=== PATIENT | male | born 1970 | race Caucasian/White ===

== ENCOUNTER 2016-06-03 16:06 | Emergency (ER) | payer OTHER ==
[2016-06-03 16:54] VITALS: BP 150/111
--- NOTE | 2016-06-03 22:02 | UC ---
Megan Carson SooYoung, scribed for Susan Larry, DO on 06/03/16 at 1729 . Back Pain HPI - HPI Summary HPI Summary: A 46 y/o M presents to [facility] with c/o acute on chronic bilat leg pain in calves and bottom of feet for past four years. Associated sx: bilat pain in forearms onset 3 weeks. Denies numbness, weakness, tingling. Pert PMHx: chronic back pain , herniated discs in neck and lumbar spine. Pt is taking 300mg Gabapentin TID with no relief. Last took IBP last night. He saw a neurosurgeon in [place] last month who won't do surgery until his discs are "full-blown." He is scheduled to have a consultation with a pain specialist on 06/08/16. Aggravating factors: walking, sitting or laying down for prolonged periods. He describes the pain as constant, burning. Alleviating factors: natural remedy, massage, yoga, accupunture. PCP is Dr. Nix in [place]. - History of Current Complaint Chief Complaint: UCBackPain Stated Complaint: NECK/BACK PAIN Hx Obtained From: Patient, Family/Mobile Home Installer - Onset/Duration: Still Present Timing: Constant Severity Initially: Moderate Severity Currently: Moderate Back Pain: Is Diffuse - bilat calves, bottom of feet, forearms Character: Burning Aggravating: Movement, Walking Alleviating: Nothing - see hpi Associated Signs And Symptoms: Negative: Swelling, Redness, Bruising, Fever, Weakness, Numbness, Tingling, Bladder Incontinence, Bowel Incontinence, Weight Loss, Pain with Weight Bearing - Risk Factors Cauda Equina Risk Factors: Negative - Allergies/Home Medications Allergies/Adverse Reactions: Allergies Allergy/AdvReac Type Severity Reaction Status Date / Time Carbamazepine [From Tegretol] Allergy Vomiting Verified 06/03/16 16:37 CI Pigment Blue 63 Allergy Altered Verified 06/03/16 16:37 [From Cymbalta] Mental Status Codeine Allergy Anaphylatic Verified 06/03/16 16:37 Shock Duloxetine [From Cymbalta] Allergy Altered Verified 06/03/16 16:37 Mental Status Tramadol Allergy Vomiting Verified 06/03/16 16:37 PMH/Surg Hx/FS Hx/Imm Hx - Additional Past Medical History Additional PMH: Pos: angina, peripheral vascular dz, back problems Previously Healthy: No Endocrine History Of: Denies: Diabetes, Thyroid Disease, Hyperthyroidism, Hypothyroidism, Dyslipidemia Cardiovascular History Of: Denies: Cardiac Disorders, Hypertension, Pacemaker/ICD, Myocardial Infarction , Congestive Heart Failure, Atrial Fibrillation, Deep Vein Thrombosis, Bleeding Disorders Respiratory History Of: Denies: COPD, Asthma, Bronchitis, Pneumonia, Pulmonary Embolism GI/ History Of: Denies: Gastroesophageal Reflux, Ulcer, Gastrointestinal Bleed, Gall Bladder Disease, Kidney Stones, Diverticulitis, Renal Disease, Urosepsis Neurological History Of: Denies: TIA, CVA, Dementia, Seizures, Migraine Psychological History Of: Denies: Anxiety, Depression, Bipolar Disorder, Schizophrenia, Post Traumatic Stress Disorder Cancer History Of: Denies: Lung Cancer, Colorectal Cancer, Breast Cancer, Prostate Cancer, Cervical Cancer Other History Of: Negative For: HIV, Hepatitis B, Hepatitis C, Anticoagulant Therapy - Surgical History Surgical History: None - Family History Known Family History: Positive: Diabetes, Other - CANCER Negative: Cardiac Disease, Hypertension - Social History Occupation: Employed Part-time Lives: With Family Alcohol Use: Occasionally Substance Use Type: None Substance Use Comment - Amount & Last Used: remote past use Smoking Status (MU): Light Every Day Tobacco Smoker Type: Cigarettes Amount Used/How Often: 1/2 pack daily Have You Smoked in the Last Year: Yes When Did the Patient Quit Smoking/Using Tobacco: 07/30/15 Household Exposure Type: Cigarettes, Cigars Cessation Counseling: Patient Advised to Stop Review of Systems Constitutional: Negative Skin: Negative Eyes: Negative ENT: Negative Respiratory: Negative Cardiovascular: Negative Gastrointestinal: Negative Genitourinary: Negative Motor: Negative Neurovascular: Negative Musculoskeletal: Other: - bilat pain in forearms, bottom of feet Neurological: Paresthesia - bl legs and forearms Psychological: Negative All Other Systems Reviewed And Are Negative: Yes Physical Exam Triage Information Reviewed: Yes Appearance: Well-Appearing, No Pain Distress, Well-Nourished Vital Signs: Initial Vital Signs Temp 98.9 F 06/03/16 16:39 Pulse 79 06/03/16 16:39 Resp 18 06/03/16 16:39 BP 150/111 06/03/16 16:39 Pulse Ox 99 06/03/16 16:39 Eyes: Positive: Conjunctiva Clear ENT: Positive: Hearing grossly normal. Negative: Muffled/hoarse voice Neck exam: Normal Neck: Positive: Supple Respiratory: Positive: Chest non-tender, Lungs clear, Normal breath sounds, No respiratory distress Cardiovascular: Positive: RRR, No Murmur Musculoskeletal: Positive: Other: - PAIN WITH FLEXION AND ROTATION AT THE WAIST ; POSITIVE SPURLING'S ON R ARM, REPRODUCIBLE R FOREARM PAIN; STRENGTH, MOTOR SENSATION INTACT BILATERAL Neurological: Positive: Alert, Muscle Tone Normal Psychological Exam: Normal Psychological: Positive: Age Appropriate Behavior Skin Exam: Normal, Other - warm, dry, nml color Back Pain Course/Dx - Course Course Of Treatment: noted pmh of pvd after pt left. called pt and asked about it. pt stated that he was checked for it but does not think that it was an actual dx. instructed pt to call vascular surg who evaluated [place] in [place] and find out if it is a dx and to have records sent to pcp. - Differential Dx/Diagnosis Differential Diagnosis/HQI/PQRI: Herniated Disc, Strain Provider Diagnoses: lumbar and cervical radiculopthy Discharge - Discharge Plan Condition: Stable Disposition: HOME Prescriptions: HYDROcodone/ACETAMIN 5-325 MG* [[place] 5-325 TAB*] 1 tab PO Q6H PRN #14 tab MDD 4 TABS PRN Reason: Pain Methylprednisolone [Medrol Dosepak 4 MG*] 0 mg PO .SEE JACINTO INSTRUCTION #1 tab Patient Education Materials: Lumbar Radiculopathy (ED), Cervical Radiculopathy (ED) Referrals: Dino Merida MD [Primary Care Provider] - Additional Instructions: CORTICOSTEROID MEDICATION: You have been given a medicine of the cortisone class. This medication is used to control inflammation or allergy. It is usually only given for a short period of time, until the acute process subsides. There are usually no side effects from short-term use of cortisone-like medications. Some persons feel an increased sense of well-being and are not sleepy at bedtime. Long-term use of cortisone medications is best avoided, unless required for a severe condition. If your condition does not remit, or relapses after the course of corticosteroid medication, you should consult your physician. Contact the physician if you develop lightheadedness, black or tarry stools , swelling of the legs, or significant rapid change in weight. YOU WOULD LIKELY BENEFIT FROM OSTEOPATHIC MANIPULATION. WE RECOMMEND THAT YOU FIND AN OSTEOPATHIC PHYSICIAN IN YOUR AREA WHO DOES LYMPHATIC, MYOFACIAL AND VISCERAL WORK The documentation as recorded by the Megan palmer SooYoung accurately reflects the service I personally performed and the decisions made by me, Susan Larry DO.
== END 2016-06-03 18:53 | disposition home or self-care (01) ==
LOC: UCEAST 16:06
DX: M54.16 Radiculopathy, lumbar region (principal); M54.12 Radiculopathy, cervical region; Z88.6 Allergy status to analgesic agent; Z88.8 Allergy status to other drugs, medicaments and biological substances; F17.210 Nicotine dependence, cigarettes, uncomplicated
CPT/HCPCS: 99212; G0463

== ENCOUNTER 2016-06-16 08:44 | Emergency (ER) | payer OTHER ==
[2016-06-16 08:56] VITALS: BP 156/96
--- NOTE | 2016-06-16 09:36 | UC ---
Back Pain HPI - HPI Summary HPI Summary: PT WITH CHRONIC BACK AND NECK PAIN BEING SEEN BY DR. BENDER WITH PAIN MGMT. IS SET UP FOR A LESI IN 2 WEEKS. CURRENTLY REPORTS TAKING 800MG GABAPENTIN TID. STATES HE HAD A PT SESSION YESTERDAY AND THEN LAST NIGHT HAD WORSENING OF PAIN. STATES HE CALLED DR. BENDER'S OFFICE AND WAS TOLD SHE COULD NOT SEE HIM PENDING INSURANCE APPROVAL OF HIS LESI. - History of Current Complaint Chief Complaint: UCBackPain Stated Complaint: NECK AND BACK PAIN Time Seen by Provider: 06/16/16 09:08 Hx Obtained From: Patient Onset/Duration: Sudden Onset, Lasting Hours, Still Present Timing: Constant Severity Initially: Moderate Severity Currently: Moderate Pain Intensity: 8 Pain Scale Used: 0-10 Numeric Back Pain: Is Diffuse Character: Sharp Aggravating: Movement Alleviating: Nothing Associated Signs And Symptoms: Positive: Negative - Allergies/Home Medications Allergies/Adverse Reactions: Allergies Allergy/AdvReac Type Severity Reaction Status Date / Time Carbamazepine [From Tegretol] Allergy Vomiting Verified 06/03/16 16:37 CI Pigment Blue 63 Allergy Altered Verified 06/03/16 16:37 [From Cymbalta] Mental Status Codeine Allergy Anaphylatic Verified 06/03/16 16:37 Shock Duloxetine [From Cymbalta] Allergy Altered Verified 06/03/16 16:37 Mental Status Tramadol Allergy Vomiting Verified 06/03/16 16:37 Home Medications: Home Medications Gabapentin TAB(NF) [Neurontin 600 mg TAB(NF)] 800 mg PO TID 06/16/16 [History] PMH/Surg Hx/FS Hx/Imm Hx Endocrine History Of: Denies: Diabetes, Thyroid Disease, Hyperthyroidism, Hypothyroidism, Dyslipidemia Cardiovascular History Of: Reports: Cardiac Disorders - abnormal EKG, Hypertension - in past not taking meds at present Denies: Pacemaker/ICD, Myocardial Infarction, Congestive Heart Failure, Atrial Fibrillation, Deep Vein Thrombosis, Bleeding Disorders Respiratory History Of: Reports: Asthma - as a child Denies: COPD, Bronchitis, Pneumonia, Pulmonary Embolism GI/ History Of: Denies: Gastroesophageal Reflux, Ulcer, Gastrointestinal Bleed, Gall Bladder Disease, Kidney Stones, Diverticulitis, Renal Disease, Urosepsis Neurological History Of: Denies: TIA, CVA, Dementia, Seizures, Migraine Psychological History Of: Denies: Anxiety, Depression, Bipolar Disorder, Schizophrenia, Post Traumatic Stress Disorder Cancer History Of: Denies: Lung Cancer, Colorectal Cancer, Breast Cancer, Prostate Cancer, Cervical Cancer Other History Of: Negative For: HIV, Hepatitis B, Hepatitis C, Anticoagulant Therapy - Surgical History Surgical History: Yes Surgery Procedure, Year, and Place: teeth - Family History Known Family History: Positive: Diabetes, Other - CANCER Negative: Cardiac Disease, Hypertension - Social History Alcohol Use: Occasionally Substance Use Type: None Substance Use Comment - Amount & Last Used: remote past use Smoking Status (MU): Light Every Day Tobacco Smoker Type: Cigarettes Amount Used/How Often: 1 cigar off and on Have You Smoked in the Last Year: Yes When Did the Patient Quit Smoking/Using Tobacco: 07/30/15 Household Exposure Type: Cigars Review of Systems Constitutional: Negative Skin: Negative Respiratory: Negative Cardiovascular: Negative Gastrointestinal: Negative Musculoskeletal: Decreased ROM, Myalgia All Other Systems Reviewed And Are Negative: Yes Physical Exam Triage Information Reviewed: Yes Appearance: Well-Appearing, No Pain Distress, Well-Nourished Vital Signs: Initial Vital Signs Temp 99.7 F 06/16/16 08:48 Pulse 88 06/16/16 08:48 Resp 18 06/16/16 08:48 BP 156/96 06/16/16 08:48 Pulse Ox 100 06/16/16 08:48 Vital Signs Reviewed: Yes Eyes: Positive: Conjunctiva Clear ENT: Positive: Hearing grossly normal Neck: Positive: Supple Respiratory: Positive: No respiratory distress, No accessory muscle use Cardiovascular: Positive: Pulses Normal Abdomen Description: Positive: Soft Musculoskeletal: Positive: No Edema, ROM Limited @ - BACK Neurological: Positive: Alert Psychological: Positive: Age Appropriate Behavior Skin: Negative: rashes Back Pain Course/Dx - Differential Dx/Diagnosis Provider Diagnoses: CHRONIC BACK PAIN - Physician Notifications Discussed Patient Care With: DR. RICHIE BENDER Time Discussed With Above Provider: 09:30 - ADVISED TO HAVE PT CALL HER OFFICE TO DISCUSS TITRATION OF GABAPENTIN Discharge - Discharge Plan Condition: Stable Disposition: HOME Patient Education Materials: Chronic Back Pain (ED) Referrals: Dino Merida MD [Primary Care Provider] - If Needed Richie Bender MD [Medical Doctor] - As Soon As Possible Additional Instructions: I SPOKE WITH DR. BENDER TODAY. SHE ADVISED THAT YOU CALL HER OFFICE TO DISCUSS FURTHER TITRATION OF YOUR GABAPENTIN DOSE.
== END 2016-06-16 09:46 | disposition home or self-care (01) ==
LOC: UCEAST 08:44
DX: M54.9 Dorsalgia, unspecified (principal); M54.2 Cervicalgia; Z88.5 Allergy status to narcotic agent; Z88.8 Allergy status to other drugs, medicaments and biological substances; F17.210 Nicotine dependence, cigarettes, uncomplicated
CPT/HCPCS: 99211; G0463

== ENCOUNTER 2016-06-26 12:42 | Emergency (ER) | payer OTHER ==
[2016-06-26 12:50] VITALS: BP 188/97
[2016-06-26] MEDS ORDERED: HYDROcodone/ACETAMIN 5-325 MG* 1 TAB PO ONE (14:25)
[2016-06-26] MEDS ORDERED: predniSONE TAB* 20 MG PO ONE (14:25)
--- NOTE | 2016-06-26 15:34 | ED ---
Back Pain - History of Current Complaint Chief Complaint: EDBackInjuryPain Stated Complaint: FALL /HIP-BACK PAIN Time Seen by Provider: 06/26/16 13:58 Hx Obtained From: Patient Onset/Duration: Sudden Onset - slipped going down stairs last evening, fell on L knee and hip but now has low back. was amb immed after fall. Onset/Duration: Started Hours Ago Timing: Constant Back Pain Location: Is Discrete @ - bilat low back Severity Initially: Moderate Severity Currently: Moderate Pain Intensity: 7 Character: Throbbing, Spasmodic, Stiffness Aggravating Symptom(s): Movement Alleviating Symptom(s): Rest, Position Associated Signs And Symptoms: Negative: Weakness, Numbness, Tingling, Bladder Incontinence, Bowel Incontinence Related History: Similar Episode Dx As - "slipped discs" - Risk Factors Cauda Equina Risk Factors: Negative - Allergies/Home Medications Allergies/Adverse Reactions: Allergies Allergy/AdvReac Type Severity Reaction Status Date / Time Codeine Allergy Anaphylatic Verified 06/26/16 12:46 Shock Carbamazepine [From Tegretol] AdvReac Vomiting Verified 06/26/16 12:46 CI Pigment Blue 63 AdvReac Altered Verified 06/26/16 12:46 [From Cymbalta] Mental Status Duloxetine [From Cymbalta] AdvReac Altered Verified 06/26/16 12:46 Mental Status Tramadol AdvReac Vomiting Verified 06/26/16 12:46 PMH/Surg Hx/FS Hx/Imm Hx Previously Healthy: Yes Endocrine/Hematology History: Denies: Hx Anticoagulant Therapy, Hx Diabetes, Hx Thyroid Disease Cardiovascular History: Reports: Hx Angina, Hx Hypertension - in past not taking meds at present, Hx Peripheral Vascular Disease Denies: Hx Congestive Heart Failure, Hx Coronary Artery Disease, Hx Deep Vein Thrombosis, Hx Hypercholesterolemia, Hx Myocardial Infarction, Hx Pacemaker /ICD, Hx Valvular Heart Disease Respiratory History: Reports: Hx Asthma - as a child Denies: Hx Chronic Obstructive Pulmonary Disease (COPD), Hx Lung Cancer, Hx Pneumonia, Hx Pulmonary Embolism GI History: Denies: Hx Gall Bladder Disease, Hx Gastrointestinal Bleed, Hx Ulcer, Hx Urosepsis History: Denies: Hx Kidney Stones, Hx Renal Disease Musculoskeletal History: Reports: Hx Back Problems Sensory History: Reports: Hx Contacts or Glasses Denies: Hx Hearing Aid Opthamlomology History: Reports: Hx Contacts or Glasses Neurological History: Denies: Hx Dementia, Hx Migraine, Hx Seizures, Hx Transient Ischemic Attacks (TIA) Comment Only: Other Neuro Impairments/Disorders - PAIN CLINIC PATIENT Psychiatric History: Denies: Hx Anxiety, Hx Depression, Hx Panic Disorder, Hx Schizophrenia, Hx Bipolar Disorder - Surgical History Surgery Procedure, Year, and Place: teeth - Immunization History Date of Tetanus Vaccine: 3 years ago Date of Influenza Vaccine: none Infectious Disease History: No Infectious Disease History: Denies: Hx Clostridium Difficile, Hx Hepatitis, Hx Human Immunodeficiency Virus (HIV), History Other Infectious Disease, Traveled Outside the [place] in Last 30 Days - Family History Known Family History: Positive: Diabetes, Other - CANCER Negative: Cardiac Disease, Hypertension - Social History Occupation: Unemployed Lives: With Family Alcohol Use: Rare Hx Substance Use: Yes Substance Use Type: Reports: None Substance Use Comment - Amount & Last Used: remote past use Hx Tobacco Use: Yes Smoking Status (MU): Current Some Day Smoker Type: Cigars Amount Used/How Often: 1 cigar off and on Have You Smoked in the Last Year: Yes Review of Systems Constitutional: Negative Negative: Fever, Chills Cardiovascular: Negative Respiratory: Negative Gastrointestinal: Negative Musculoskeletal: Other - low back pain Skin: Negative Negative: Rash Neurological: Negative Negative: Headache, Weakness, Paresthesia Psychological: Normal All Other Systems Reviewed And Are Negative: Yes Physical Exam Triage Information Reviewed: Yes Vital Signs On Initial Exam: Initial Vitals Temp Pulse Resp BP Pulse Ox 99.3 F 94 20 188/97 100 06/26/16 12:46 06/26/16 12:46 06/26/16 12:46 06/26/16 12:46 06/26/16 12:46 Vital Signs Reviewed: Yes Appearance: Positive: Well-Appearing, Well-Nourished, Pain Distress - appears nervous and moves quickly to sit up and explain pain Skin: Positive: Warm, Skin Color Reflects Adequate Perfusion, Dry Neck: Positive: Supple, Other: - no evidence swelling, deformity, good ROM Respiratory/Lung Sounds: Positive: Clear to Auscultation Cardiovascular: Positive: Normal, RRR, Pulses are Symmetrical in both Upper and Lower Extremities Musculoskeletal: Positive: Limited @ - lumbar spine on full flexion Neurological: Positive: Normal, Sensory/Motor Intact, Alert, Oriented to Person Place, Time Psychiatric: Positive: Normal Diagnostics - Vital Signs Vital Signs Temp Pulse Resp BP Pulse Ox 06/26/16 12:46 99.3 F 94 20 188/97 100 - Laboratory Lab Statement: Any lab studies that have been ordered have been reviewed, and results considered in the medical decision making process. Re-Evaluation - Re-Evaluation First Eval Re-Evaluation Time: 15:00 - pt standing at bedside bending over towards floor when approached for recheck. states pain much better Change: Improved Back Pain Course/Dx - Diagnoses Differential Diagnosis/HQI/PQRI: Positive: Cauda Equina Syndrome, Fracture, Herniated Disc, Strain, Sprain Provider Diagnoses: Low back strain Discharge - Discharge Plan Condition: Improved Disposition: HOME Patient Education Materials: Low Back Strain (ED) Referrals: Dino Merida MD [Primary Care Provider] - 2 Days (if no better) Additional Instructions: use warm packs to back ibuprofen 600mg every 6 hours as needed for pain (take with food) avoid heavy lifting Addendum entered and electronically signed by Cheryl Harris NP 06/26/16 15: 45: ED Addendum Addendum: [employer] reference # [id number]
== END 2016-06-26 15:49 | disposition home or self-care (01) ==
LOC: ED 12:42
DX: S39.012A Strain of muscle, fascia and tendon of lower back, initial encounter (principal); M54.9 Dorsalgia, unspecified; Z72.0 Tobacco use; M54.5 Low back pain; W19.XXXA Unspecified fall, initial encounter; Y93.9 Activity, unspecified; Y92.9 Unspecified place or not applicable; Y99.9 Unspecified external cause status
CPT/HCPCS: 99282; J7512

== ENCOUNTER 2016-08-21 09:11 | Emergency (ER) | payer OTHER ==
[2016-08-21 09:24] VITALS: BP 157/90
--- NOTE | 2016-08-21 15:37 | UC ---
Shaylee Carson Rebecca, scribed for Chioma Looney MD on 08/21/16 at 0932 . Neck Pain HPI - HPI Summary HPI Summary: Pt is a 46 y/o M who presents to [facility] c/o acute on chronic neck pain secondary to pinched nerves, present for 4 years, worsening gradually this morning. Pain is in the neck with bilateral radiation to the hands and forearms. Pain characterized as pressure, throbbing and burning and currently severe, ranked 9/10. Sx aggravated and alleviated by nothing. Denies any other symptoms. Pain is being managed with treatments of epidurals. Denies any Hx of drug addiction/abuse. Dr. Merida is PCP, has an appointment in 2 days. Has an appointment with [facility] on the 7th of next month (2 weeks). - History of Current Complaint Chief Complaint: UCGeneralIllness Stated Complaint: BACK PAIN Time Seen by Provider: 08/21/16 09:27 Hx Obtained From: Patient Onset/Duration Of Injury/Symptoms: Days - Worsened today Onset/Duration: Gradual Onset - acute on chronic Severity: Severe Pain Intensity: 9 Pain Scale Used: 0-10 Numeric Location: Discrete At: - neck, Radiates To: - Bilateral hands and forearms Character: Burning, Throbbing Aggravating Factors: Nothing Alleviating Factors: Nothing Associated Signs & Symptoms: Positive: Negative Related History: Similar Episode/Dx As: - 4 years of chronic pain - Allergies/Home Medications Allergies/Adverse Reactions: Allergies Allergy/AdvReac Type Severity Reaction Status Date / Time Codeine Allergy Anaphylatic Verified 08/20/16 10:10 Shock Carbamazepine [From Tegretol] AdvReac Vomiting Verified 08/20/16 10:10 CI Pigment Blue 63 AdvReac Altered Verified 08/20/16 10:10 [From Cymbalta] Mental Status Duloxetine [From Cymbalta] AdvReac Altered Verified 08/20/16 10:10 Mental Status Tramadol AdvReac Vomiting Verified 08/20/16 10:10 PMH/Surg Hx/FS Hx/Imm Hx Endocrine History Of: Denies: Diabetes, Thyroid Disease, Hyperthyroidism, Hypothyroidism, Dyslipidemia Cardiovascular History Of: Reports: Cardiac Disorders - abnormal EKG, Hypertension Denies: Pacemaker/ICD, Myocardial Infarction, Congestive Heart Failure, Atrial Fibrillation, Deep Vein Thrombosis, Bleeding Disorders Respiratory History Of: Reports: Asthma - as a child Denies: COPD, Bronchitis, Pneumonia, Pulmonary Embolism GI/ History Of: Denies: Gastroesophageal Reflux, Ulcer, Gastrointestinal Bleed, Gall Bladder Disease, Kidney Stones, Diverticulitis, Renal Disease, Urosepsis Neurological History Of: Denies: TIA, CVA, Dementia, Seizures, Migraine Psychological History Of: Denies: Anxiety, Depression, Bipolar Disorder, Schizophrenia, Post Traumatic Stress Disorder Cancer History Of: Denies: Lung Cancer, Colorectal Cancer, Breast Cancer, Prostate Cancer, Cervical Cancer Other History Of: Negative For: HIV, Hepatitis B, Hepatitis C, Anticoagulant Therapy - Surgical History Surgical History: Yes Surgery Procedure, Year, and Place: teeth - Family History Known Family History: Positive: Diabetes, Other - CANCER Negative: Cardiac Disease, Hypertension - Social History Alcohol Use: Occasionally Substance Use Type: None Substance Use Comment - Amount & Last Used: remote past use Smoking Status (MU): Former Smoker Type: Cigars Amount Used/How Often: 1 cigar off and on Have You Smoked in the Last Year: Yes When Did the Patient Quit Smoking/Using Tobacco: 07/30/15 Household Exposure Type: Cigars Review Of Systems Constitutional: Positive: Negative Skin: Positive: Negative Eyes: Positive: Negative ENT: Positive: Negative Respiratory: Positive: Negative Cardiovascular: Positive: Negative Gastrointestinal: Positive: Negative Genitourinary: Positive: Negative Musculoskeletal: Positive: Arthralgia - See HPI Neurological: Positive: Negative Psychological: Positive: Negative All Other Systems Reviewed And Are Negative: Yes Physical Exam Triage Information Reviewed: Yes Appearance: Well-Nourished Vital Signs: Initial Vital Signs Temp 99.1 F 08/21/16 09:18 Pulse 103 08/21/16 09:18 Resp 18 08/21/16 09:18 BP 157/90 08/21/16 09:18 Pulse Ox 99 08/21/16 09:18 Vital Signs Reviewed: Yes Eye Exam: Normal ENT Exam: Normal Neck exam: Other - tender generalized carlos alberto lower cervical area, carlos alberto C 4- T1. Mild spasm / straightening appreciated. No single point tenderness, but clearly uncomfortable. Respiratory Exam: Normal Respiratory: Positive: Chest non-tender, Lungs clear, Normal breath sounds, No respiratory distress, No accessory muscle use, Other: - NO dyspnea, no tachypnea , normal respiratory rate Cardiovascular Exam: Normal Cardiovascular: Positive: RRR, No Murmur, Pulses Normal, Brisk Capillary Refill , Other: - Good general skin color Abdominal Exam: Normal Abdomen Description: Positive: Nontender, No Organomegaly, Soft Bowel Sounds: Positive: Present Musculoskeletal Exam: Normal Musculoskeletal: Positive: Strength Intact - Gait slow, steady. Moves hands ok. Does report occasional paresthesia and dysesthesia to bilat mid palms and to dorsal forearms. Neurological Exam: Normal - Nonfocal, grossly intact Psychological Exam: Normal - Conversing easily and appropriately Skin Exam: Normal Skin: Negative: rashes Neck Pain Course/Dx - Course Course Of Treatment: No new problems in CCC. He has an appointmen on Tuesday with PCP, where he intends to review tx plan / medications. DNage number: [phone]. Answered questions as posed. Offered Toradol shot, pt declined. Reviewed MRI from 08/16/16 (in [facility]) - Differential Dx/Diagnosis Provider Diagnoses: Acute exacerbation of chronic neck pain. Abnormal cervical MRI Discharge - Discharge Plan Condition: Stable Disposition: HOME Prescriptions: HYDROcodone/ACETAMIN 5-325 MG* [[place] 5-325 TAB*] 1 tab PO Q6H PRN #14 tab MDD 4 PRN Reason: Pain Patient Education Materials: Cervical Spinal Stenosis (ED), Chronic Neck Pain ( GEN) Referrals: Dino Merida MD [Primary Care Provider] - Additional Instructions: Please follow up with your primary care provider as scheduled on Tuesday. Seek medical attention for worsening problems in the meantime. The documentation as recorded by the Shaylee palmer Rebecca accurately reflects the service I personally performed and the decisions made by me, Chioma Looney MD.
== END 2016-08-21 10:12 | disposition home or self-care (01) ==
LOC: UCEAST 09:11
DX: M54.2 Cervicalgia (principal); G89.29 Other chronic pain; R93.8 Abnormal findings on diagnostic imaging of other specified body structures; Z88.5 Allergy status to narcotic agent; Z87.891 Personal history of nicotine dependence
CPT/HCPCS: 99212; G0463

== ENCOUNTER 2016-08-25 12:57 | Emergency (ER) | payer OTHER ==
[2016-08-25] MEDS ORDERED: Albuterol 2.5 MG/3 ML NEB.SOL* (0.083%) INH ONE (13:16)
[2016-08-25] MEDS ORDERED: Ipratropium 0.5MG/2.5ML NEB* 0.5 MG/2.5 ML NEB.SOLN INH ONE (13:17)
--- NOTE | 2016-08-25 13:19 | UC ---
Respiratory Complaint HPI - HPI Summary HPI Summary: The patient comes in today for: 1. Lung congestion: Onset: yesterday. Palliative/provocative: New wood burning. Going outside from the house helps. Quality: Dry cough Region: [place]. Severity: Lower back pain worse with coughing. Time: Cough comes and goes. Associated symptoms: Wheezing: Present. Event: His brother was burning a different wood and the patient states that his breathing was worse. Fevers: None. Hemoptysis: None. * - History of Current Complaint Stated Complaint: CONGESTION Time Seen by Provider: 08/25/16 13:10 Hx Obtained From: Patient, Family/Document Specialist - Allergies/Home Medications Allergies/Adverse Reactions: Allergies Allergy/AdvReac Type Severity Reaction Status Date / Time Codeine Allergy Anaphylatic Verified 08/25/16 13:26 Shock Carbamazepine [From Tegretol] AdvReac Vomiting Verified 08/25/16 13:26 CI Pigment Blue 63 AdvReac Altered Verified 08/25/16 13:26 [From Cymbalta] Mental Status Duloxetine [From Cymbalta] AdvReac Altered Verified 08/25/16 13:26 Mental Status Tramadol AdvReac Vomiting Verified 08/25/16 13:26 Home Medications: Home Medications Bp Med 1 tab PO DAILY 08/25/16 [History Confirmed 08/25/16] PMH/Surg Hx/FS Hx/Imm Hx Previously Healthy: No - Chronic neck/lower back pain Endocrine History Of: Denies: Diabetes - Chr, Thyroid Disease, Hyperthyroidism, Hypothyroidism, Dyslipidemia Cardiovascular History Of: Reports: Cardiac Disorders - Palpitations and a "weird" EKG., Hypertension Denies: Pacemaker/ICD, Myocardial Infarction, Congestive Heart Failure, Atrial Fibrillation, Deep Vein Thrombosis, Bleeding Disorders Respiratory History Of: Reports: Asthma - as a child Denies: COPD, Bronchitis, Pneumonia, Pulmonary Embolism GI/ History Of: Denies: Gastroesophageal Reflux, Ulcer, Gastrointestinal Bleed, Gall Bladder Disease, Kidney Stones, Diverticulitis, Renal Disease, Urosepsis Neurological History Of: Denies: TIA, CVA, Dementia, Seizures, Migraine Psychological History Of: Denies: Anxiety, Depression, Bipolar Disorder, Schizophrenia, Post Traumatic Stress Disorder Cancer History Of: Denies: Lung Cancer, Colorectal Cancer, Breast Cancer, Prostate Cancer, Cervical Cancer Other History Of: Negative For: HIV, Hepatitis B, Hepatitis C, Anticoagulant Therapy - Surgical History Surgical History: Yes Surgery Procedure, Year, and Place: teeth - Family History Known Family History: Positive: Diabetes, Other - CANCER Negative: Cardiac Disease, Hypertension - Social History Occupation: Unemployed Alcohol Use: Occasionally Substance Use Type: None Substance Use Comment - Amount & Last Used: remote past use Smoking Status (MU): Former Smoker Type: Cigars Amount Used/How Often: 1 cigar off and on Have You Smoked in the Last Year: Yes When Did the Patient Quit Smoking/Using Tobacco: 07/30/15 Household Exposure Type: Cigars Review of Systems Constitutional: Negative Skin: Negative Eyes: Negative ENT: Negative Respiratory: Shortness Of Breath, Cough Cardiovascular: Negative Gastrointestinal: Negative Genitourinary: Negative All Other Systems Reviewed And Are Negative: Yes Physical Exam Triage Information Reviewed: Yes Appearance: Well-Appearing, Thin, Other: - Patient appears nervous--and short of breath. Which is the cause/effect is not clear. Vital Signs Reviewed: Yes Eyes: Positive: Conjunctiva Clear. Negative: Discharge ENT: Positive: Hearing grossly normal. Negative: Pharyngeal erythema, Nasal congestion, Nasal drainage, TM bulging, TM dull, TM red, Tonsillar swelling, Tonsillar exudate Dental: Negative: Gross Decay/Caries @, Dental Fracture @ Neck: Positive: Supple, Nontender, No Lymphadenopathy. Negative: Nuchal Rigidity Respiratory: Positive: Lungs clear - Initially, there was no marked wheezing, but the inspiration/expiration cycle seems shortened--better after the albuterol /ipratropium treatment by 45% by his report., No respiratory distress - NO intercostal retractions. But when he talks he appears short of breath., No accessory muscle use. Negative: Crackles, Wheezing Cardiovascular: Positive: RRR, No Murmur Abdomen Description: Positive: Nontender, No Organomegaly, Soft. Negative: Distended, Guarding Musculoskeletal: Positive: Strength Intact, ROM Intact, No Edema Neurological: Positive: Alert, Muscle Tone Normal Psychological: Positive: Age Appropriate Behavior, Consolable Skin: Negative: rashes, breakdown UC Diagnostic Evaluation - Radiology Xray Interpretation: No Acute Changes - The patient's preliminary report by radiology on venous Doppler and CXR were negative. Radiology Interpretation Completed By: Radiologist Respiratory Course/Dx - Course Course Of Treatment: Depsite the patient's pressured speech, and short sentences and complaint of shortness of breath, he states that he continues to do well post DuoNeb treatment. His treatment options were discussed. At this time, he just wants to go with albuterol treatment. - Differential Dx/Diagnosis Differential Diagnosis/HQI/PQRI: Asthma, Bronchitis, Sinusitis Provider Diagnoses: Dyspnea secondary to. Asthma exacerbation. Discharge - Discharge Plan Condition: Stable Disposition: HOME Patient Education Materials: Asthma (ED), Reactive Airways Disease (ED) Referrals: Dino Merida MD [Primary Care Provider] - 1 Week (Please see your primary care provider in about one to two weeks to see how well you are doing. If you get worse, please be seen sooner.)
[2016-08-25 13:26] VITALS: BP 119/96
--- NOTE | 2016-08-25 14:34 | RAD ---
INDICATION: Chronic bilateral leg pain. COMPARISON: None TECHNIQUE: Duplex interrogation of the both lower extremities was performed. FINDINGS: Deep veins: The common femoral, great saphenous, profunda femoris, proximal, mid, and distal deep femoral, popliteal, posterior tibial, and peroneal veins are patent. There is normal compressibility, augmentation, and phasic flow. Superficial veins: There are no findings of superficial thrombophlebitis. Popliteal fossa:There is no evidence of a popliteal cyst. Soft tissues:There are no soft tissue abnormalities. IMPRESSION: NORMAL BILATERAL EXAMINATION. NO EVIDENCE OF DEEP VENOUS THROMBOSIS
--- NOTE | 2016-08-25 14:57 | RAD ---
INDICATION: Short of breath COMPARISON: Chest x-ray November 17, 2015 TECHNIQUE: PA and lateral dual-energy views were obtained. FINDINGS: Bones/Soft Tissues: There are no acute bony findings. Cardiomediastinal: The cardiomediastinal silhouette is normal. Lungs: There are no infiltrates. There is mild hyperinflation Pleura: There are no pleural effusions. Other: None IMPRESSION: MILD HYPERINFLATION, OTHERWISE NEGATIVE
== END 2016-08-25 15:11 | disposition home or self-care (01) ==
LOC: UCCORT 12:57
DX: J45.901 Unspecified asthma with (acute) exacerbation (principal); M79.604 Pain in right leg; M79.605 Pain in left leg; I10 Essential (primary) hypertension; Z87.891 Personal history of nicotine dependence
CPT/HCPCS: 71020; 93970; 99202; G0463; J7644

== ENCOUNTER 2016-10-26 12:26 | Emergency (ER) | payer OTHER ==
[2016-10-26 12:58] VITALS: BP 129/84
[2016-10-26] MEDS ORDERED: Ketorolac INJ* 30 MG/ML 1 ML VIAL IM ONE (13:29)
[2016-10-26] MEDS ORDERED: HYDROcodone/ACETAMIN 5-325 MG* 1 TAB PO ONE (13:30)
--- NOTE | 2016-10-26 13:38 | UC ---
Megan Carson SooYoung, scribed for Justyna Resendiz MD on 10/26/16 at 1247 . Back Pain HPI - HPI Summary HPI Summary: A 46 y/o M [place] [facility] [place]o acute on chronic severe back pain and pinched nerve in his neck. The pain is radiating down the back of his legs which he states is new. Associated sx: vomiting. Pt was seen at [facility] yesterday for a MHE due to SI because of the "things he was saying" because he was in so much pain; pt states they did not give him pain medication while there. Pt is here with and [id number]. He reports that he took Gabapentin this AM and yesterday to no relief, he took Tylenol PM last night. Pt has been previously seen [facility] [place]. Pt also has a Rx for medical marijuana, but will be unable to make his appt that is scheduled for 10/29/2016 due to financial reasons. PCP is Dr. Merida. PMHx: HTN. Former smoker, quit 5-6 months ago. Patients medication reviewed this visit. - History of Current Complaint Stated Complaint: BACK PAIN Time Seen by Provider: 10/26/16 12:45 Hx Obtained From: Patient Onset/Duration: Still Present Timing: Constant Severity Initially: Severe Severity Currently: Severe Pain Intensity: 10 Pain Scale Used: 0-10 Numeric Back Pain: Is Discrete @ - back and neck Character: Aching, Spasmodic Aggravating: Movement Alleviating: Nothing Associated Signs And Symptoms: Positive: Other - pos: vomiting - Allergies/Home Medications Allergies/Adverse Reactions: Allergies Allergy/AdvReac Type Severity Reaction Status Date / Time Codeine Allergy Anaphylatic Verified 10/26/16 12:47 Shock Carbamazepine [From Tegretol] AdvReac Vomiting Verified 10/26/16 12:47 CI Pigment Blue 63 AdvReac Altered Verified 10/26/16 12:47 [From Cymbalta] Mental Status Duloxetine [From Cymbalta] AdvReac Altered Verified 10/26/16 12:47 Mental Status Tramadol AdvReac Vomiting Verified 10/26/16 12:47 Home Medications: Home Medications Levetiracetam [Keppra 500] 500 mg PO 10/26/16 [History] PMH/Surg Hx/FS Hx/Imm Hx Previously Healthy: No Endocrine History Of: Denies: Diabetes - Chr, Thyroid Disease, Hyperthyroidism, Hypothyroidism, Dyslipidemia Cardiovascular History Of: Reports: Cardiac Disorders - Palpitations and a "weird" EKG., Hypertension Denies: Pacemaker/ICD, Myocardial Infarction, Congestive Heart Failure, Atrial Fibrillation, Deep Vein Thrombosis, Bleeding Disorders Respiratory History Of: Reports: Asthma - as a child Denies: COPD, Bronchitis, Pneumonia, Pulmonary Embolism GI/ History Of: Denies: Gastroesophageal Reflux, Ulcer, Gastrointestinal Bleed, Gall Bladder Disease, Kidney Stones, Diverticulitis, Renal Disease, Urosepsis Neurological History Of: Denies: TIA, CVA, Dementia, Seizures, Migraine Psychological History Of: Denies: Anxiety, Depression, Bipolar Disorder, Schizophrenia, Post Traumatic Stress Disorder Cancer History Of: Denies: Lung Cancer, Colorectal Cancer, Breast Cancer, Prostate Cancer, Cervical Cancer Other History Of: Negative For: HIV, Hepatitis B, Hepatitis C, Anticoagulant Therapy - Surgical History Surgical History: Yes Surgery Procedure, Year, and Place: teeth - Family History Known Family History: Positive: Diabetes, Other - CANCER Negative: Cardiac Disease, Hypertension - Social History Occupation: Unemployed Lives: With Family Alcohol Use: Occasionally Substance Use Type: None Substance Use Comment - Amount & Last Used: remote past use Smoking Status (MU): Former Smoker Type: Cigars Amount Used/How Often: 1 cigar off and on Have You Smoked in the Last Year: Yes When Did the Patient Quit Smoking/Using Tobacco: 07/30/15 Household Exposure Type: Cigars Review of Systems Constitutional: Negative Skin: Negative Eyes: Negative ENT: Negative Respiratory: Negative Cardiovascular: Negative Gastrointestinal: Vomiting Genitourinary: Negative Motor: Negative Neurovascular: Negative Musculoskeletal: Other: - pos: back and neck pain Neurological: Negative Psychological: Negative All Other Systems Reviewed And Are Negative: Yes Physical Exam Vital Signs: Initial Vital Signs Temp 98.4 F 10/26/16 12:40 Pulse 84 10/26/16 12:40 Resp 20 10/26/16 12:40 BP 129/84 10/26/16 12:40 Pulse Ox 100 10/26/16 12:40 Back Pain Course/Dx - Course Course Of Treatment: Blood pressure noted and patient informed to follow up with PCP. - Physician Notifications Discussed Patient Care With: Dr. Merida, PCP Time Discussed With Above Provider: 13:34 Instructed by Provider To: Other - will see pt tomorrow Discharge - Discharge Plan Condition: Stable Disposition: HOME Patient Education Materials: Back Pain (ED) Referrals: Dino Merida MD [Primary Care Provider] - (8:30 AM on TOMORROW, TUESDAY, OCTOBER 27) Additional Instructions: - Okay to alternate ibuprofen (advil, Motrin) and tylenol every 3 hours for pain. Take with food. Do NOT Take for more than 4-5 days - USe your medications as prescribed for pain - Okay to apply moist heat to the areas of discomfort - Use your cane at all times for balance - You have an appointment tomorrow at 8:30am at your primary care doctor's office - they are expecting you - It is very important that you keep your appointment as scheduled on . Contact your excel specialist for a follow-up appointment in [place] Call your doctor or go to the emergency department with questions or concerns The documentation as recorded by the Megan palmer SooYoung accurately reflects the service I personally performed and the decisions made by me, Justyna Resendiz MD.
== END 2016-10-26 13:58 | disposition home or self-care (01) ==
LOC: UCEAST 12:26
DX: M54.9 Dorsalgia, unspecified (principal); M54.2 Cervicalgia; I10 Essential (primary) hypertension; Z87.891 Personal history of nicotine dependence
CPT/HCPCS: 96372; 99211; G0463; J1885

== ENCOUNTER 2016-11-08 10:34 | Emergency (ER) | payer OTHER ==
[2016-11-08 10:47] VITALS: BP 122/74
[2016-11-08] MEDS ORDERED: Albuterol/Ipratropium NEB.SOL* Albuterol 2.5 MG/Ipratropium 0.5 MG 3 ML INH ONE (11:51)
--- NOTE | 2016-11-08 12:51 | RAD ---
INDICATION: Chest pain, burning, shortness of breath. Productive cough. Question pericarditis. COMPARISON: August 25, 2016 TECHNIQUE: Dual energy PA and routine lateral views of the chest were obtained. REPORT: Clear lungs and pleural spaces. Negative for pneumothorax. The heart, pulmonary vasculature, and mediastinal contours are unremarkable. Unremarkable osseous structures and soft tissue contours. IMPRESSION: No evidence for pneumonia. Negative exam.
--- NOTE | 2016-11-08 13:21 | UC ---
Shortness of Breath HPI - HPI Summary HPI Summary: Patient presents with CC of sore throat and vomiting several times overnight. Daughter is currently sick with strep throat. Temp at 99.3 on arrival. He was diaphoretic last evening with vomiting. After arrival to the , he notes he is becoming SOB and having chest tightness midsternal and retrosternally which he is describing as tightness. The discomfort does not radiate, is 3/10 and constant. Family hx of cardiac issues. Denies personal history of cardiac issues, PE or DVT. Denies leg pain or tightness. Shortness of breath began on arrival to the and he denies history of lung pathologies. Quit smoking 7 months ago. Shortness of breath improves in orthostasis position and worse with recumbent position, but chest pressure does not differ. Denies cough or other URI symptoms except throat pain. - History of Current Complaint Chief Complaint: UCGI Stated Complaint: VOMITING Time Seen by Provider: 11/08/16 11:40 Hx Obtained From: Patient Onset/Duration: Sudden Onset Timing: Constant Current Severity: Moderate Dyspnea At: Rest Aggrevating Factors: Recumbent Position Alleviating Factors: Upright Position Associated Signs & Symptoms: Positive: Fever, Diaphoresis - Risk Factors Pulmonary Embolism: Negative Cardiac: Negative Pseudomonas: Bronchiectasis Tuberculosis: Negative - Allergy/Home Medications Allergies/Adverse Reactions: Allergies Allergy/AdvReac Type Severity Reaction Status Date / Time Codeine Allergy Anaphylatic Verified 11/08/16 10:47 Shock Carbamazepine [From Tegretol] AdvReac Vomiting Verified 11/08/16 10:47 CI Pigment Blue 63 AdvReac Altered Verified 11/08/16 10:47 [From Cymbalta] Mental Status Duloxetine [From Cymbalta] AdvReac Altered Verified 11/08/16 10:47 Mental Status Tramadol AdvReac Vomiting Verified 11/08/16 10:47 PMH/Surg Hx/FS Hx/Imm Hx Previously Healthy: Yes Other History Of: Negative For: HIV, Hepatitis B, Hepatitis C, Anticoagulant Therapy - Surgical History Surgical History: Yes Surgery Procedure, Year, and Place: teeth - Family History Known Family History: Positive: Diabetes, Other - CANCER Negative: Cardiac Disease, Hypertension - Social History Occupation: Employed Full-time Lives: With Family Alcohol Use: Rare Substance Use Type: Marijuana Substance Use Comment - Amount & Last Used: remote past use Smoking Status (MU): Former Smoker Type: Cigars Amount Used/How Often: 1 cigar off and on Have You Smoked in the Last Year: Yes When Did the Patient Quit Smoking/Using Tobacco: 07/30/15 Household Exposure Type: Cigars Review of Systems Constitutional: Fever, Fatigue Skin: Negative ENT: Sore Throat Respiratory: Shortness Of Breath Cardiovascular: Chest Pain Gastrointestinal: Negative Genitourinary: Negative Motor: Negative Musculoskeletal: Negative Neurological: Negative Psychological: Negative All Other Systems Reviewed And Are Negative: Yes Physical Exam Triage Information Reviewed: Yes Appearance: Well-Appearing, No Pain Distress, Well-Nourished Vital Signs: Initial Vital Signs Temp 99.4 F 11/08/16 10:44 Pulse 75 11/08/16 10:44 Resp 18 11/08/16 10:44 BP 122/74 11/08/16 10:44 Pulse Ox 100 11/08/16 10:44 Vital Signs Reviewed: Yes Eye Exam: Normal Eyes: Positive: Conjunctiva Clear ENT: Positive: Pharyngeal erythema Neck exam: Normal Neck: Positive: Supple, Nontender, No Lymphadenopathy Respiratory Exam: Normal Respiratory: Positive: Chest non-tender, Lungs clear, Normal breath sounds Cardiovascular Exam: Normal Cardiovascular: Positive: RRR, Other: - no pleural friction rub appreciated with alcantara or diaphragm at LSB, apex or point of maximum impulse Abdominal Exam: Normal Abdomen Description: Positive: Nontender Musculoskeletal Exam: Normal Musculoskeletal: Positive: Strength Intact Neurological Exam: Normal Psychological Exam: Normal Psychological: Positive: Normal Response To Family Skin Exam: Normal Shortness of Breath Dx - Course Course Of Treatment: Chest pressure mid and retrosternally which does not radiate to the back or to neck or jaw. Denies personal history. Endorses family history of cardiac pathology. Denies leg pain or hx of DVT/PE. EKG shows ST elevation suggtesting acute pericarditis. Chest pressure not improved with orthostasis or leaning forward and not worse with lying down. Duo-neb given with no improvement of SOB. O2 sat at 99%. Temp on arrival 99.4. Resp 18, HR 75. Strep contacts with sore throat. Uvula midline. Pharyngeal erythema without tonsillar exudates. Rapid strep negative. Chest xray shows no acute pathologies. No pleural friction rub appreciated with alcantara or diaphragm at LSB, apex or point of maximum impulseChrisjessica Javier PA-C called at 1:15p to make known of patient. Signed out AMA with refusal of ambulance. He remains tachypnic with dyspnea at rest upon leaving the . - Differential Dx/Diagnosis Differential Diagnosis/HQI/PQRI: Asthma, Bronchitis, Pneumonia Provider Diagnoses: Shortness of Breath Discharge - Discharge Plan Condition: Stable Disposition: AGAINST MEDICAL ADVICE Referrals: Dino Merida MD [Primary Care Provider] -
== END 2016-11-08 13:11 | disposition left against medical advice (07) ==
LOC: UCEAST 10:34
DX: R06.02 Shortness of breath (principal); Z87.891 Personal history of nicotine dependence
CPT/HCPCS: 71020; 87651; 99212; A9270-GY; G0463